=== PATIENT | male | born 1960 | race Caucasian/White ===

== ENCOUNTER 2017-01-01 22:00 | Emergency (ER) | payer OTHER ==
[~2017-01-01] VITALS: Ht 177.8 cm; Wt 96.0 kg
[~2017-01-01 22:00] MED LIST: PHEN30SP4 NS
[2017-01-01 22:04] VITALS: Ht 177.8 cm; Wt 96.0 kg
[2017-01-01] MEDS ORDERED: SOD CHLORIDE 0.9% 1,000 ML IV STA (22:24)
[2017-01-01] MEDS ORDERED: METO25TA7 PO (22:27)
[2017-01-01 22:46] LABS: ADD SCAN DIFF NO
[2017-01-01 22:49] LABS: BASOPHIL # 0.1 10^3/ul (0.0-0.1); BASOPHILS % 0.9 % (0.0-2.0); EOSINOPHILS # 0.3 10^3/ul (0.0-0.5); EOSINOPHILS % 4.4 % (0.0-7.0); HEMATOCRIT 42.7 % (42.0-52.0); HEMOGLOBIN 13.4 g/dl (14.0-18.0); LYMPHOCYTES # 1.9 10^3/ul (0.8-2.9); MEAN CORPUSCULAR HEMOGLOBIN 27.6 pg (29.0-33.0); MEAN CORPUSCULAR HGB CONC 31.4 g/dl (32.0-37.0); MEAN CORPUSCULAR VOLUME 87.9 fl (82.0-101.0); MEAN PLATELET VOLUME 10.9 fl (7.4-10.4); MONOCYTE # 0.4 10^3/ul (0.3-0.9); NEUTROPHIL # 3.1 10^3/ul (1.6-7.5); NEUTROPHILS % 53.7 % (39.0-77.0); PLATELET COUNT 246 10^3/UL (140-415); RED BLOOD COUNT 4.86 10^6/ul (4.70-6.10); RED CELL DISTRIBUTION WIDTH 13.9 % (11.5-14.5); WHITE BLOOD COUNT 5.7 10^3/ul (4.8-10.8)
[2017-01-01 23:06] LABS: ANION GAP 13 (8-16); BLOOD UREA NITROGEN 16 mg/dl (7-20); CALCIUM 9.5 mg/dl (8.4-10.2); CARBON DIOXIDE 26 mmol/L (21-31); CHLORIDE 103 mmol/L (97-110); CREATININE 0.91 mg/dl (0.61-1.24); GLUCOSE 120 mg/dl (70-220); MAGNESIUM 2.1 mg/dl (1.7-2.5); POTASSIUM 3.7 mmol/L (3.5-5.1); SODIUM 138 mmol/L (135-144)
[2017-01-01 23:25] LABS: INR 0.95; PROTIME 12.7 Sec (12.2-14.2); TROPONIN-I < 0.012 ng/ml (0.00-0.12)
[2017-01-01 23:26] LABS: PARTIAL THROMBOPLASTIN TIME 26.5 Sec (25.0-35.0)
[2017-01-02] MEDS ORDERED: DILTIAZEM 25 MG INJ IV ONE
[2017-01-02 00:13] VITALS: BP 121/67; PULSE 88; RESP 16; TEMP 97.6
--- NOTE | 2017-01-02 00:13 | RADRPT ---
PROCEDURE: XR Chest. CLINICAL INDICATION: Chest pain TECHNIQUE: Single frontal view of the chest was obtained COMPARISON: 01/28/2013 FINDINGS: The heart and mediastinum are within normal limits. There is minimal prominence of the lung interstitium likely minimal chronic changes. There is no ple ural effusion or pneumothorax. ECG leads projected over the chest. IMPRESSION: No acute disease. RPTAT: HJES .Hao Marquez MD, MD Date Time Electronically viewed and signed by .Hao Marquez MD, on 01/02/2017 00:13 .S/
--- NOTE | 2017-01-02 00:15 | ERD ---
ER Documentation Chief Complaint Date/Time DATE: 01/02/17 TIME: 00:12 Chief Complaint pressur like chest pain since 15 minutes ago HPI This is a 36-year-old male who presents to the emergency room for evaluation of heart palpitations and chest discomfort for the past 30 minutes. The patient states that he does have a history of atrial fibrillation. He is on metoprolol. He does state that he feels like his heart is beating fast and this is happened in the past that has caused him chest discomfort. The patient denies any alcohol use, but does state that he did drink coffee today and he normally does not drink coffee. ROS All systems reviewed and are negative except as per history of present illness. Medications Home Meds Reported Medications Metoprolol Succinate* (Toprol XL*) 25 Mg Tab.sr.24h, 25 MG PO DAILY, #30 TAB 01/01/17 Discontinued Reported Medications Phenylephrine Hcl (NASAL SPRAY) 30 Ml [place], 30 ML NS DAILY 01/28/13 Allergies Allergies: Coded Allergies: tetracycline (Unverified Allergy, Unknown, 01/01/17) PMhx/Soc Anesthesia Reaction: No Hx Neurological Disorder: No Hx Respiratory Disorders: No Hx Psychiatric Problems: No Hx Miscellaneous Medical Probl: No Hx Alcohol Use: No Hx Substance Use: No Hx Tobacco Use: Yes Smoking Status: Former smoker Physical Exam Vitals Vital Signs Date Time Temp Pulse Resp B/P Pulse Ox O2 Delivery O2 Flow Rate FiO2 01/01/17 22:30 112 15 131/82 99 Room Air 01/01/17 22:04 98.4 95 20 130/70 98 Physical Exam INITIAL VITAL SIGNS: Reviewed by me GENERAL: The patient is well developed and appropriate for usual state of health in no apparent distress HEENT: Pupils equal, round, and reactive to light. EOMI. There is no scleral icterus. NECK: C-spine is soft and supple, there is no meningismus. There is no cervical lymphadenopathy. LUNGS: Clear to auscultation bilaterally. There are no rales, wheezes or rhonchi. HEART: Irregularly irregular rhythm, no murmurs, clicks, rubs or gallops. ABDOMEN: Soft, non-tender, non-distended. There are bowel sounds in all four quadrants. No rebound or guarding. EXTREMITIES: There is no peripheral cyanosis or edema. No focal swelling or erythema. NEUROLOGICAL: The patient moves all four extremities with 5/5 strength. Cranial nerves II - XII are intact. Normal gait. Alert and oriented SKIN: There is no apparent rash or petechiae. HEME/LYMPHATIC: There is no evidence of excessive bruising or lymphedema. PSYCHIATRIC: The patient does not appear anxious or depressed. Result Diagram: 01/01/17222901/01/172229 Results 24 hrs Laboratory Tests Test 01/01/17 22:30 White Blood Count 5.710^3/ul Red Blood Count 4.8610^6/ul Hemoglobin 13.4g/dl Hematocrit 42.7% Mean Corpuscular Volume 87.9fl Mean Corpuscular Hemoglobin 27.6pg Mean Corpuscular Hemoglobin Concent 31.4g/dl Red Cell Distribution Width 13.9% Platelet Count 41572^3/UL Mean Platelet Volume 10.9fl Neutrophils % 53.7% Lymphocytes % 34.0% Monocytes % 7.0% Eosinophils % 4.4% Basophils % 0.9% Nucleated Red Blood Cells % 0.0/100WBC Neutrophils # 3.110^3/ul Lymphocytes # 1.910^3/ul Monocytes # 0.410^3/ul Eosinophils # 0.310^3/ul Basophils # 0.110^3/ul Nucleated Red Blood Cells # 0.010^3/ul Prothrombin Time 12.7Sec Prothrombin Time Ratio 1.0 INR International Normalized Ratio 0.95 Activated Partial Thromboplast Time 26.5Sec Sodium Level 138mmol/L Potassium Level 3.7mmol/L Chloride Level 103mmol/L Carbon Dioxide Level 26mmol/L Anion Gap 13 Blood Urea Nitrogen 16mg/dl Creatinine 0.91mg/dl Glucose Level 120mg/dl Calcium Level 9.5mg/dl Magnesium Level 2.1mg/dl Troponin I < 0.012ng/ml Current Medications Medications (Trade) Dose Ordered Sig/Lesly Route PRN Reason Start Time Stop Time Status Last Admin Dose Admin Sodium Chloride (NS) 1,000 ml @ 1,000 mls/hr Q1H STAT IV 01/01/17 22:24 01/01/17 23:23 DC 01/01/17 22:40 Diltiazem HCl (Cardizem Iv) 5 mg ONCE ONCE IV 01/02/17 00:00 01/02/17 00:01 DC 01/01/17 23:55 Procedures/MDM EKG: Rate/Rhythm: Atrial fibrillation with rapid ventricular response QRS, ST, T-waves: [No changes consistent w/ acute ischemia] Impression: Atrial fibrillation with rapid ventricular response Chest X-ray 1V Interpreted by me: Soft Tissue: No acute abnormalities Bones: No acute abnormalities Mediastinum/Cardiac Silhouette/Lungs: [No acute abnormalities] This [age]-year-old male presents to the emergency room for evaluation of chest discomfort and palpitations. When I evaluated him he did have a heart rate of 122, and was in rapid A. fib with RVR. The patient is on p.o. metoprolol. Lab work was obtained including a troponin which was negative. Chest x-ray is clear. The patient was given 5 mg IV of Cardizem. When I reevaluated him his heart rate is 78 bpm. He states he is having no chest discomfort whatsoever. He is hemodynamically stable and in no acute distress. I feel that this patient was in atrial fibrillation with rapid ventricular response secondary to caffeine ingestion which is not normal for him. I advised the patient to refrain from caffeine. He verbalized understanding. Both him and his are comfortable with discharge at this time. My suspicion for ACS is low at this time as his EKG is nonischemic, and this patient has no chest pain or chest discomfort at this time after receiving Cardizem per Departure Diagnosis: Primary Impression: Atrial fibrillation with RVR Additional Impression: Heart palpitations Condition: Stable JEETREYES GONZALEZ Jan 02, 2017 00:15
== END 2017-01-02 00:20 | disposition home or self-care (01) ==
LOC: E/R 22:00
DX: I48.91 Unspecified atrial fibrillation (principal); Z87.891 Personal history of nicotine dependence
CPT/HCPCS: 36415; 71010; 80048; 83735; 84484; 85025; 85610; 85730; 93005; 96361; 96374; J7030; Z7502; Z7610

== ENCOUNTER 2018-03-05 23:51 | Emergency (ER) | END 2018-03-06 03:20 | disposition home or self-care (01) ==

== ENCOUNTER 2019-06-08 13:43 | Emergency (ER) | payer OTHER ==
[~2019-06-08] VITALS: Ht 182.9 cm; Wt 97.6 kg
[~2019-06-08 13:43] MED LIST changes: +FLUT9.9S NASAL; +IBUP800T48 PO; +METO-335 PO; -PHEN30SP4 NS
[2019-06-08 13:57] VITALS: Ht 182.9 cm; Wt 97.6 kg
[2019-06-08] MEDS ORDERED: SOD CHLORIDE 0.9% 1,000 ML IV STA (15:48)
[2019-06-08] MEDS ORDERED: PROCHLORPERAZINE 10 MG INJ IV STA (15:48)
[2019-06-08] MEDS ORDERED: ACETAMINOPHEN 500 MG TAB PO STA (15:48)
[2019-06-08] MEDS ORDERED: DIPHENHYDRAMINE 50 MG INJ IV STA (15:48)
[2019-06-08 17:38] VITALS: BP 122/77; PULSE 74; RESP 17
== END 2019-06-08 17:45 | disposition home or self-care (01) ==
LOC: E/R 13:43
DX: R51 Headache (principal); I10 Essential (primary) hypertension; Z87.891 Personal history of nicotine dependence
CPT/HCPCS: 70450; 80048; 84484; 85025; 93005; 96374; 96375; J0780; J1200; J7030; Z7502; Z7610